=== PATIENT | female | born 2000 | race Caucasian/White ===

== ENCOUNTER 2021-11-14 21:39 | Emergency (ER) | payer OTHER ==
[~2021-11-14] VITALS: Ht 167.6 cm; Wt 70.3 kg
[2021-11-14 22:03] VITALS: BP 136/77
--- NOTE | 2021-11-14 22:09 | NUR ---
TO LOBBY FOLLOWING TRIAGE. UA OBTAINED
[2021-11-14] MEDS ORDERED: PRON INH (23:50)
[2021-11-14] MEDS ORDERED: NEBU1KIT2 MC (23:50)
[2021-11-14] MEDS ORDERED: PRED15SY34 PO (23:50)
[2021-11-14] MEDS ORDERED: CEPH-588 PO (23:54)
[2021-11-15] MEDS ORDERED: cefTRIAXone 2,000 MG VIAL ONE (02:33)
== END 2021-11-15 00:50 | disposition home or self-care (01) ==
LOC: MED 21:39
DX: N39.0 Urinary tract infection, site not specified (principal); F12.90 Cannabis use, unspecified, uncomplicated
CPT/HCPCS: 99283; J0696